=== PATIENT | female | born 1980 | race Two or more races ===

== ENCOUNTER 2019-10-02 | Outpatient (CLI) | payer OTHER | END 2019-10-02 00:01 | disposition critical access hospital (66) | LOC: EMS | PROVIDERS: ATTEND Surgery | DX: T76.21XA Adult sexual abuse, suspected, initial encounter (principal) | CPT/HCPCS: A0425; A0429 ==

== ENCOUNTER 2019-10-02 00:24 | Emergency (ER) | payer OTHER ==
[2019-10-02 00:46] VITALS: BP 148/104
--- NOTE | 2019-10-02 01:19 | ED Physician Documentation ---
History of Present Illness - Stated complaint Stated Complaint: AMS - Chief complaint Chief Complaint: MHE - History obtained from History obtained from: Patient, EMS (Patient is a very pleasant 39-year-old female. On my evaluation the patient is requesting to go home she can answer questions appropriately she has no obvious signs of trauma she is refusing to allow me to examine her she has medical decision-making capability and capacity she is denying homicidal or suicidal thoughts or auditory or visual hallucinations she is awake alert oriented to time date person and place she has medical decision-making capability and capacity at this time and she would like to go home.) PD PAST MEDICAL HISTORY - Past Medical History Cardiovascular: Hypertension Psych: Depression Musculoskeletal: Osteoarthritis, Fibromyalgia, Chronic back pain - Past Surgical History Past Surgical History: No - Present Medications Home Medications: Ambulatory Orders Medication Instructions Recorded Confirmed Colchicine 1 tab DAILY 10/02/19 10/02/19 Lisinopril [Prinivil] 1 tab DAILY PM 10/02/19 10/02/19 Loratadine [Allergy] 1 tab DAILY 10/02/19 10/02/19 Multivitamin [Multivitamins] 1 tab DAILY 10/02/19 10/02/19 Potassium Chloride [Klor-Con 10] 1 tab BID 10/02/19 10/02/19 Pregabalin 1 cap TID 10/02/19 10/02/19 Tapentadol HCl [Nucynta] 1 tab BID 10/02/19 10/02/19 hydrOXYzine HCL [Hydroxyzine HCl] 1 tab DAILY PM 10/02/19 10/02/19 hydroCHLOROthiazide 1 cap DAILY 10/02/19 10/02/19 [Hydrochlorothiazide] metFORMIN [Glucophage] 1 tab DAILY PM 10/02/19 10/02/19 oxyCODONE/ACET 5/325 [Percocet 5 1 tab RTQ6H PRN 10/02/19 10/02/19 mg/325 mg] rOPINIRole [Requip] 1 mg TID 10/02/19 10/02/19 tiZANidine [Zanaflex] 1 tab QID 10/02/19 10/02/19 - Allergies Allergies/Adverse Reactions: Allergies Allergy/AdvReac Type Severity Reaction Status Date / Time latex Allergy Rash Verified 12/22/15 21:32 - Social History Does the pt smoke?: No Smoking Status: Former smoker Does the pt drink ETOH?: No Does the pt have substance abuse?: No - Immunizations Immunizations: TDAP >10years/unknown Results - Vitals Vitals: Vital Signs - 24 hr 10/02/19 00:39 Temperature 37.5 C Heart Rate 116 H Respiratory 20 Rate Blood Pressure 148/104 H O2 Saturation 95 Oxygen O2 Source Room air - Labs Labs: Laboratory Tests 10/02/19 10/02/19 10/02/19 01:59 01:59 01:59 WBC 12.2 H RBC 4.69 Hgb 14.5 Hct 42.6 MCV 90.8 MCH 30.9 MCHC 34.0 RDW 12.9 Plt Count 371 MPV 8.9 Neut # (Auto) 8.0 H Lymph # (Auto) 3.3 [place] # (Auto) 0.8 Eos # (Auto) 0.0 Baso # (Auto) 0.1 Absolute Nucleated RBC 0.00 Nucleated RBC % 0.0 Sodium 138 Potassium 3.4 L Chloride 98 L Carbon Dioxide 26 Anion Gap 14.0 H BUN 11 Creatinine 0.7 Estimated GFR (MDRD) 92 Glucose 133 H Calcium 10.5 H TSH 2.89 Salicylates < 6.0 Acetaminophen < 10 L Ethyl Alcohol < 5.0 PD MEDICAL DECISION MAKING - ED course Complexity details: other (The patient's is now here the patient is awake, alert, oriented she denies any homicidal or suicidal thoughts she denies any auditory or visual hallucinations the patient has been reported would like to be discharged home with close follow-up with her primary care provider. They should return emergency department any concerns.) Departure - Departure Disposition: 01 Home, Self Care Clinical Impression: Well adult health check Condition: Fair Instructions: ED Stress React Follow-Up: YOUR,DOCTOR [Other]
[2019-10-02 02:05] LABS: BASOPHILS # (AUTO) 0.1 10^3/uL (0.0-0.1); BASOPHILS % (AUTO) 0.5 %; EOSINOPHILS % (AUTO) 0.2 %; HGB - HEMOGLOBIN 14.5 g/dL (12.0-16.0); LYMPHOCYTES # (AUTO) 3.3 10^3/uL (1.5-3.5); LYMPHOCYTES % (AUTO) 27.3 %; MEAN CORPUSCULAR HEMOGLOBIN 30.9 pg (27.0-31.0); MEAN CORPUSCULAR VOLUME 90.8 fL (81.0-99.0); MEAN PLATELET VOLUME 8.9 fL (7.9-10.8); MONOCYTES # (AUTO) 0.8 10^3/uL (0.0-1.0); MONOCYTES % (AUTO) 6.5 %; NEUTROPHILS % (AUTO) 65.1 %; PLT - PLATELET COUNT 371 10^3/uL (130-450); RED BLOOD COUNT 4.69 10^6/uL (4.20-5.40); RED CELL DISTRIBUTION WIDTH 12.9 % (12.0-15.0); WHITE BLOOD COUNT 12.2 x10^3/uL (4.8-10.8)
[2019-10-02 02:20] LABS: ACETAMINOPHEN < 10 ug/mL (10-30); BUN - BLOOD UREA NITROGEN 11 mg/dL (6-20); CALCIUM 10.5 mg/dL (8.5-10.3); CARBON DIOXIDE - CO2 26 mmol/L (21-32); CHLORIDE 98 mmol/L (101-111); CREATININE 0.7 mg/dL (0.4-1.0); GFR - MDRD 92 (>89); GLUCOSE 133 mg/dL (70-100); SALICYLATE < 6.0 mg/dL; SODIUM 138 mmol/L (135-145)
== END 2019-10-02 04:22 | disposition home or self-care (01) ==
LOC: EDUNIT# → ED 00:24
DX: Z03.89 Encounter for observation for other suspected diseases and conditions ruled out (principal); I10 Essential (primary) hypertension; Z87.891 Personal history of nicotine dependence
CPT/HCPCS: 36415; 80048; 80307; 80320; 80329; 84443; 85025; 99281; 99283

== ENCOUNTER 2019-10-09 09:37 | Emergency (ER) | payer OTHER ==
[2019-10-09] MEDS ORDERED: HALOPERIDOL 5 MG/ML VIAL IM STA ×2 (09:43→20:07)
[2019-10-09] MEDS ORDERED: MIDAZOLAM 2 MG/2 ML VIAL IM STA ×2 (09:43→20:07)
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
[2019-10-09 10:10] LABS: BASOPHILS # (AUTO) 0.1 10^3/uL (0.0-0.1); BASOPHILS % (AUTO) 0.6 %; EOSINOPHILS % (AUTO) 0.2 %; HGB - HEMOGLOBIN 14.1 g/dL (12.0-16.0); LYMPHOCYTES # (AUTO) 1.7 10^3/uL (1.5-3.5); LYMPHOCYTES % (AUTO) 17.3 %; MEAN CORPUSCULAR HEMOGLOBIN 31.1 pg (27.0-31.0); MEAN CORPUSCULAR VOLUME 91.6 fL (81.0-99.0); MEAN PLATELET VOLUME 9.2 fL (7.9-10.8); MONOCYTES # (AUTO) 0.7 10^3/uL (0.0-1.0); MONOCYTES % (AUTO) 7.1 %; NEUTROPHILS # (AUTO) 7.3 10^3/uL (1.5-6.6); NEUTROPHILS % (AUTO) 74.6 %; PLT - PLATELET COUNT 338 10^3/uL (130-450); RED BLOOD COUNT 4.53 10^6/uL (4.20-5.40); WHITE BLOOD COUNT 9.8 x10^3/uL (4.8-10.8)
[2019-10-09 10:28] LABS: ACETAMINOPHEN < 10 ug/mL (10-30); ALBUMIN 4.6 g/dL (3.2-5.5); ALBUMIN/GLOBULIN RATIO 1.1 (1.0-2.2); ALKALINE PHOSPHATASE 42 IU/L (42-121); ALT ALANINE AMINOTRANSFERASE 33 IU/L (10-60); AST ASPARTATE AMINOTRANSFERASE 31 IU/L (10-42); BILIRUBIN,TOTAL 0.8 mg/dL (0.2-1.0); BUN - BLOOD UREA NITROGEN 13 mg/dL (6-20); CALCIUM 9.4 mg/dL (8.5-10.3); CARBON DIOXIDE - CO2 24 mmol/L (21-32); CHLORIDE 100 mmol/L (101-111); CREATININE 0.7 mg/dL (0.4-1.0); GFR - MDRD 92 (>89); GLUCOSE 151 mg/dL (70-100); LIPASE 31 U/L (22-51); SALICYLATE < 6.0 mg/dL; SODIUM 138 mmol/L (135-145); TOTAL PROTEIN 8.7 g/dL (6.7-8.2)
[2019-10-09 10:56] LABS: MUDS CUTOFF CONCENTRATIONS CUTOFF CONC BELOW:
[2019-10-09 10:58] LABS: BILIRUBIN,URINE NEGATIVE (NEGATIVE); GLUCOSE, URINE (UA) NEGATIVE (NEGATIVE); KETONES,URINE (UA) TRACE mg/dL (NEGATIVE); LEUKOCYTE ESTERASE, URINE NEGATIVE (NEGATIVE); NITRITE,URINE NEGATIVE (NEGATIVE); OCCULT BLOOD,URINE NEGATIVE (NEGATIVE); PROTEIN,URINE 30 mg/dL (NEGATIVE); UROBILINOGEN,URINE 0.2 (NORMAL) E.U./dL (NORMAL)
[2019-10-09 11:01] LABS: CLARITY,URINE CLEAR (CLEAR)
[2019-10-09 11:08] LABS: AMPHETAMINE SCREEN,URINE NEGATIVE (NEGATIVE); BENZODIAZEPINES SCREEN, URINE POSITIVE (NEGATIVE); COCAINE SCREEN URINE NEGATIVE (NEGATIVE); METHAMPHETAMINES SCREEN, URINE NEGATIVE (NEGATIVE); OPIATE SCREEN, URINE NEGATIVE (NEGATIVE); OXYCODONE SCREEN, URINE POSITIVE (NEGATIVE)
[2019-10-09 11:09] LABS: METHADONE SCREEN, URINE NEGATIVE (NEGATIVE); PROPOXYPHENE SCREEN, URINE NEGATIVE (NEGATIVE); TRICYCLIC ANTIDEPRESSANT,URINE NEGATIVE (NEGATIVE)
[2019-10-09 11:14] LABS: BACTERIA,URINE Few /HPF (None Seen); RBC,URINE 0-5 /HPF (0-5); SQUAMOUS EPITHELIAL CELL,UR FEW Squamous (<= Few)
[2019-10-09] MEDS ORDERED: HALOPERIDOL 5 MG/ML VIAL IM ONE (13:53)
[2019-10-09] MEDS ORDERED: LORazepam 1 MG TABLET PO STA (15:21)
[2019-10-09] MEDS ORDERED: OLANZapine ODT 5 MG TABLET TL ONE (15:41)
[2019-10-09] MEDS ORDERED: oxyCODONE 5 MG TABLET PO STA (18:52)
[2019-10-09] MEDS ORDERED: ACETAMINOPHEN 325 MG TABLET PO STA (18:52)
[2019-10-09] MEDS ORDERED: KETAMINE 500 MG/10 ML VIAL IM STA (20:14)
--- NOTE | 2019-10-09 20:15 | ED Physician Documentation ---
ED Addendum - Addendum Addendum: 10/09/19 20:[address] Patient [address] out by Dr[address] Alicia. This is a 39-year-old woman who reportedly has a history of bipolar disorder and has recently decompensated. She is being evaluated by the DCR for involuntary placement. She became very agitated. Very belligerent. Throwing things at staff. Flipping over furniture in her room etc. She was administered 10 mg of Haldol IM, 2 mg of Versed IM. Really not much in the way of response to this and this was followed by 200 mg of ketamine IM. 10/09/19 21:29 DCR arranged for placement at [facility] under the care of Dr. Kay. After the above medications she was calm and stable for transport. [place] were completed.
[2019-10-09] MEDS ORDERED: KETAMINE 500 MG/10 ML VIAL ONE (20:18)
[2019-10-10 03:49] VITALS: BP 158/98
== END 2019-10-10 04:19 ==
LOC: EDUNIT# → ED 09:37
DX: F30.2 Manic episode, severe with psychotic symptoms (principal); I10 Essential (primary) hypertension; Z78.1 Physical restraint status
CPT/HCPCS: 36415; 80320; 80329; 81001; 83690; 93005; 96372; 99285; A9270; J8499; 80053; 80306; 80307; 81003; 84443; 85025; 87086

== ENCOUNTER 2019-10-24 09:53 | Emergency (ER) | payer OTHER ==
[2019-10-24 10:41] LABS: BASOPHILS % (AUTO) 0.6 %; EOSINOPHILS % (AUTO) 0.4 %; HGB - HEMOGLOBIN 13.2 g/dL (12.0-16.0); LYMPHOCYTES # (AUTO) 1.1 10^3/uL (1.5-3.5); LYMPHOCYTES % (AUTO) 15.3 %; MEAN CORPUSCULAR HEMOGLOBIN 31.6 pg (27.0-31.0); MEAN CORPUSCULAR HGB CONC 33.7 g/dL (32.0-36.0); MEAN CORPUSCULAR VOLUME 93.8 fL (81.0-99.0); MEAN PLATELET VOLUME 8.7 fL (7.9-10.8); MONOCYTES # (AUTO) 0.4 10^3/uL (0.0-1.0); MONOCYTES % (AUTO) 5.9 %; NEUTROPHILS # (AUTO) 5.4 10^3/uL (1.5-6.6); NEUTROPHILS % (AUTO) 77.4 %; PLT - PLATELET COUNT 318 10^3/uL (130-450); RED BLOOD COUNT 4.18 10^6/uL (4.20-5.40); RED CELL DISTRIBUTION WIDTH 13.2 % (12.0-15.0)
[2019-10-24 10:54] LABS: ALBUMIN 4.4 g/dL (3.2-5.5); ALBUMIN/GLOBULIN RATIO 1.3 (1.0-2.2); ALKALINE PHOSPHATASE 43 IU/L (42-121); ALT ALANINE AMINOTRANSFERASE 38 IU/L (10-60); AST ASPARTATE AMINOTRANSFERASE 33 IU/L (10-42); BILIRUBIN,TOTAL 0.4 mg/dL (0.2-1.0); BUN - BLOOD UREA NITROGEN 10 mg/dL (6-20); CALCIUM 9.4 mg/dL (8.5-10.3); CARBON DIOXIDE - CO2 27 mmol/L (21-32); CHLORIDE 99 mmol/L (101-111); CREATININE 0.7 mg/dL (0.4-1.0); GFR - MDRD 92 (>89); GLUCOSE 131 mg/dL (70-100); LIPASE 28 U/L (22-51); SODIUM 139 mmol/L (135-145); TOTAL PROTEIN 7.8 g/dL (6.7-8.2)
--- NOTE | 2019-10-24 12:30 | ED Physician Documentation ---
PD HPI MHE - Stated complaint Stated Complaint: MHE - Chief complaint Chief Complaint: MHE - History obtained from History obtained from: Patient, EMS - History of Present Illness Primary symptom: Manic, Aggressive behavior, Off meds Timing - onset: How many days ago (5) Contributing factors: Sig other, Off meds Similar symptoms before: Diagnosis (acute luna) Recently seen: Emergency Dept, Transferred - Additional information Additional information: 39 y/o female with a history of luna has recently been detained and she left the hospital AMA. She is not taking medications, she is not sleeping and she has pressured speech with perseveration about the demands of her . She has been detained by the [facility] as gravely disabled. Review of Systems Unable to obtain: Uncooperative Constitutional: denies: Fever Eyes: denies: Decreased vision Ears: denies: Ear pain Nose: denies: Rhinorrhea / runny nose, Congestion Throat: denies: Sore throat Cardiac: denies: Chest pain / pressure, Palpitations Respiratory: denies: Dyspnea, Cough GI: reports: Abdominal Pain : reports: Dysuria, Frequency Skin: denies: Rash Musculoskeletal: reports: Back pain. denies: Neck pain Neurologic: denies: Generalized weakness, Focal weakness, Numbness PD PAST MEDICAL HISTORY - Past Medical History Past Medical History: Yes Cardiovascular: Hypertension Psych: Depression Musculoskeletal: Osteoarthritis, Fibromyalgia, Chronic back pain - Past Surgical History Past Surgical History: No - Present Medications Home Medications: Ambulatory Orders Medication Instructions Recorded Confirmed Lisinopril [Prinivil] 1 tab PO DAILY 10/02/19 10/25/19 Pregabalin 1 cap PO TID 10/02/19 10/25/19 hydroCHLOROthiazide 1 cap PO DAILY 10/02/19 10/25/19 [Hydrochlorothiazide] metFORMIN [Glucophage] 500 mg PO DAILY PM 10/02/19 10/25/19 oxyCODONE/ACET 5/325 [Percocet 5 1 tab PO QID PRN 10/02/19 10/25/19 mg/325 mg] rOPINIRole [Requip] 1 mg PO TID 10/02/19 10/25/19 tiZANidine [Zanaflex] 4 mg PO QID PRN 10/02/19 10/25/19 DULoxetine [Cymbalta] 90 mg PO DAILY PM 10/09/19 10/25/19 Alprazolam [Xanax] 0.5 mg PO BID 10/25/19 10/25/19 Colchicine [Colcrys] 0.6 mg PO DAILY 10/25/19 10/25/19 Lamotrigine [Lamotrigine ER] 25 mg PO DAILY 10/25/19 10/25/19 Tapentadol HCl [Nucynta] 50 mg PO BID 10/25/19 10/25/19 hydrOXYzine HCL [Hydroxyzine HCl] 25 mg PO DAILY PM 10/25/19 10/25/19 traZODone [Desyrel] 100 mg PO HS 10/25/19 10/25/19 - Allergies Allergies/Adverse Reactions: Allergies Allergy/AdvReac Type Severity Reaction Status Date / Time latex Allergy Rash Verified 10/25/19 05:54 - Social History Does the pt smoke?: No Smoking Status: Never smoker Does the pt drink ETOH?: No Does the pt have substance abuse?: No - Immunizations Immunizations: TDAP >10years/unknown PD ED PE NORMAL - Vitals Vital signs reviewed: Yes (hyppertensive mild ) - General General: Alert and oriented X 3, No acute distress, Well developed/nourished - HEENT HEENT: Atraumatic, PERRL, EOMI - Neck Neck: Supple, no meningeal sign, No bony TTP - Cardiac Cardiac: RRR, No murmur - Respiratory Respiratory: No respiratory distress, Clear bilaterally - Abdomen Abdomen: Soft, Other (morbid obesity mild tenderness without garding ) - Back Back: No CVA TTP, No spinal TTP - Derm Derm: Normal color, Warm and dry, No rash - Extremities Extremities: No deformity, No edema, No calf tenderness / cord - Neuro Neuro: retail product advisor 2-12 intact, No motor deficit, No sensory deficit, Other (pressured speech) Eye Opening: Spontaneous Motor: Obeys Commands Verbal: Oriented GCS Score: 15 - Psych Psych: Other (mood is mad the affect is blunted) Results - Vitals Vitals: Vital Signs - 24 hr 10/24/19 10/25/19 10/25/19 22:44 03:38 08:06 Temperature 37.1 C 36.7 C Heart Rate 90 102 H 98 Respiratory 16 16 20 Rate Blood Pressure 144/84 H 166/99 H 144/86 H O2 Saturation 100 100 100 Oxygen O2 Source Room air - Labs Labs: Laboratory Tests 10/24/19 10/24/19 10/24/19 10:33 10:33 10:33 WBC 7.0 RBC 4.18 L Hgb 13.2 Hct 39.2 MCV 93.8 MCH 31.6 H MCHC 33.7 RDW 13.2 Plt Count 318 MPV 8.7 Neut # (Auto) 5.4 Lymph # (Auto) 1.1 L [place] # (Auto) 0.4 Eos # (Auto) 0.0 Baso # (Auto) 0.0 Absolute Nucleated RBC 0.00 Nucleated RBC % 0.0 Sodium 139 Potassium 3.7 Chloride 99 L Carbon Dioxide 27 Anion Gap 13.0 BUN 10 Creatinine 0.7 Estimated GFR (MDRD) 92 Glucose 131 H Calcium 9.4 Total Bilirubin 0.4 AST 33 ALT 38 Alkaline Phosphatase 43 Total Protein 7.8 Albumin 4.4 Globulin 3.4 Albumin/Globulin Ratio 1.3 Lipase 28 TSH 0.84 Urine Color Urine Clarity Urine pH Ur Specific [place] Urine Protein Urine Glucose (UA) Urine Ketones Urine Occult Blood Urine Nitrite Urine Bilirubin Urine Urobilinogen Ur Leukocyte Esterase Ur Microscopic Review Urine Culture Comments Urine HCG, Qual Urine Opiates Screen Ur Oxycodone Screen Urine Methadone Screen Ur Propoxyphene Screen Ur Barbiturates Screen Ur Tricyclics Screen Ur Phencyclidine Scrn Ur Amphetamine Screen U Methamphetamines Scrn U Benzodiazepines Scrn Urine Cocaine Screen U Cannabinoids Screen Ethyl Alcohol < 5.0 10/24/19 10/24/19 15:25 15:25 WBC RBC Hgb Hct MCV MCH MCHC RDW Plt Count MPV Neut # (Auto) Lymph # (Auto) [place] # (Auto) Eos # (Auto) Baso # (Auto) Absolute Nucleated RBC Nucleated RBC % Sodium Potassium Chloride Carbon Dioxide Anion Gap BUN Creatinine Estimated GFR (MDRD) Glucose Calcium Total Bilirubin AST ALT Alkaline Phosphatase Total Protein Albumin Globulin Albumin/Globulin Ratio Lipase TSH Urine Color YELLOW Urine Clarity CLEAR Urine pH 7.5 Ur Specific [place] 1.010 Urine Protein NEGATIVE Urine Glucose (UA) NEGATIVE Urine Ketones NEGATIVE Urine Occult Blood NEGATIVE Urine Nitrite NEGATIVE Urine Bilirubin NEGATIVE Urine Urobilinogen 0.2 (NORMAL) Ur Leukocyte Esterase NEGATIVE Ur Microscopic Review NOT INDICATED Urine Culture Comments NOT INDICATED Urine HCG, Qual NEGATIVE Urine Opiates Screen NEGATIVE Ur Oxycodone Screen POSITIVE H Urine Methadone Screen NEGATIVE Ur Propoxyphene Screen NEGATIVE Ur Barbiturates Screen NEGATIVE Ur Tricyclics Screen NEGATIVE Ur Phencyclidine Scrn NEGATIVE Ur Amphetamine Screen NEGATIVE U Methamphetamines Scrn NEGATIVE U Benzodiazepines Scrn POSITIVE H Urine Cocaine Screen NEGATIVE U Cannabinoids Screen POSITIVE H Ethyl Alcohol PD MEDICAL DECISION MAKING - ED course Complexity details: reviewed old records, reviewed results, re-evaluated patient, considered differential, d/w patient ED course: 39-year-old female with history of luna and noncompliance is been noncompliant and she is manic. She is brought to the hospital by ambulance detained as gravely disabled by [facility]. She exhibits pressured speech, aggressive behavior and perseveration about her husbands sexual demands. The hospice social worker is consulted and the DCR is dispatched. She is administered PO ativan and PO hydroxizine and refuses PO zyprexa. At shift change care is turned over to Dr. Medina awaiting placement. Patient is able to sleep overnight in the emergency department and following day today the patient is excepted for admission to [facility]. Departure - Departure Disposition: 65 Psych Hosp/Unit DC/Xfer Clinical Impression: Luna
[2019-10-24] MEDS ORDERED: LORazepam 1 MG TABLET PO STA (13:02)
[2019-10-24] MEDS ORDERED: OLANZapine ODT 5 MG TABLET TL ONE (13:49)
[2019-10-24] MEDS ORDERED: hydrOXYzine PAMOATE 25 MG CAPSULE PO STA (14:09)
[2019-10-24 15:33] LABS: MUDS CUTOFF CONCENTRATIONS CUTOFF CONC BELOW:
[2019-10-24 15:40] LABS: BILIRUBIN,URINE NEGATIVE (NEGATIVE); CLARITY,URINE CLEAR (CLEAR); GLUCOSE, URINE (UA) NEGATIVE (NEGATIVE); HCG UR QUAL NEGATIVE; KETONES,URINE (UA) NEGATIVE (NEGATIVE); LEUKOCYTE ESTERASE, URINE NEGATIVE (NEGATIVE); NITRITE,URINE NEGATIVE (NEGATIVE); OCCULT BLOOD,URINE NEGATIVE (NEGATIVE); PH,URINE 7.5 PH (5.0-7.5); PROTEIN,URINE NEGATIVE (NEGATIVE); UROBILINOGEN,URINE 0.2 (NORMAL) E.U./dL (NORMAL)
[2019-10-24 15:48] LABS: AMPHETAMINE SCREEN,URINE NEGATIVE (NEGATIVE); BENZODIAZEPINES SCREEN, URINE POSITIVE (NEGATIVE); COCAINE SCREEN URINE NEGATIVE (NEGATIVE); METHADONE SCREEN, URINE NEGATIVE (NEGATIVE); METHAMPHETAMINES SCREEN, URINE NEGATIVE (NEGATIVE); OPIATE SCREEN, URINE NEGATIVE (NEGATIVE); OXYCODONE SCREEN, URINE POSITIVE (NEGATIVE); PROPOXYPHENE SCREEN, URINE NEGATIVE (NEGATIVE); TRICYCLIC ANTIDEPRESSANT,URINE NEGATIVE (NEGATIVE)
[2019-10-24] MEDS ORDERED: oxyCODONE 5 MG TABLET PO STA (20:55)
[2019-10-25] MEDS ORDERED: IBUPROFEN 400 MG TABLET PO STA (03:42)
[2019-10-25] MEDS ORDERED: ACETAMINOPHEN 325 MG TABLET PO STA ×2 (03:43→14:40)
[2019-10-25] MEDS: tiZANidine 4 MG TABLET PO PRN ×2 (05:30→12:50)
[2019-10-25] MEDS ORDERED: PREGABALIN 25 MG CAPSULE PO STA (05:56)
[2019-10-25] MEDS ORDERED: LORazepam 2 MG/ML VIAL IM STA (06:16)
[2019-10-25] MEDS ORDERED: LORazepam 2 MG/ML VIAL ONE (06:20)
[2019-10-25] MEDS ORDERED: rOPINIRole 1 MG TABLET PO STA (14:39)
[2019-10-25 19:01] VITALS: BP 126/80
[2019-10-25] MEDS ORDERED: tiZANidine 4 MG TABLET PO STA (19:58)
[2019-10-25] MEDS ORDERED: LORazepam 1 MG TABLET PO STA (19:58)
== END 2019-10-25 21:15 ==
LOC: EDUNIT# → ED 09:53
DX: F30.9 Manic episode, unspecified (principal); R30.0 Dysuria; R35.0 Frequency of micturition; Z91.14 Patient's other noncompliance with medication regimen; I10 Essential (primary) hypertension; M79.7 Fibromyalgia; G89.29 Other chronic pain; M54.9 Dorsalgia, unspecified; M19.90 Unspecified osteoarthritis, unspecified site
CPT/HCPCS: 36415; 80320; 81003; 81025; 83690; 93005; 96372; 99283; 99285; A9270; J2060; J8499; 80053; 80306; 81001; 84443; 85025; 87086

== ENCOUNTER 2019-11-01 13:16 | Emergency (ER) | payer OTHER ==
[2019-11-01 14:14] LABS: BASOPHILS % (AUTO) 0.5 %; EOSINOPHILS # (AUTO) 0.1 10^3/uL (0.0-0.7); EOSINOPHILS % (AUTO) 0.6 %; HGB - HEMOGLOBIN 14.3 g/dL (12.0-16.0); LYMPHOCYTES # (AUTO) 1.7 10^3/uL (1.5-3.5); LYMPHOCYTES % (AUTO) 21.4 %; MEAN CORPUSCULAR HEMOGLOBIN 31.8 pg (27.0-31.0); MEAN CORPUSCULAR HGB CONC 34.5 g/dL (32.0-36.0); MEAN PLATELET VOLUME 9.1 fL (7.9-10.8); MONOCYTES # (AUTO) 0.6 10^3/uL (0.0-1.0); MONOCYTES % (AUTO) 7.1 %; NEUTROPHILS # (AUTO) 5.6 10^3/uL (1.5-6.6); NEUTROPHILS % (AUTO) 69.9 %; PLT - PLATELET COUNT 377 10^3/uL (130-450); RED CELL DISTRIBUTION WIDTH 12.9 % (12.0-15.0)
[2019-11-01 14:31] LABS: ACETAMINOPHEN < 10 ug/mL (10-30); ALBUMIN 4.5 g/dL (3.2-5.5); ALBUMIN/GLOBULIN RATIO 1.1 (1.0-2.2); ALKALINE PHOSPHATASE 50 IU/L (42-121); ALT ALANINE AMINOTRANSFERASE 40 IU/L (10-60); AST ASPARTATE AMINOTRANSFERASE 36 IU/L (10-42); BILIRUBIN,TOTAL 0.7 mg/dL (0.2-1.0); BUN - BLOOD UREA NITROGEN 9 mg/dL (6-20); CALCIUM 10.1 mg/dL (8.5-10.3); CARBON DIOXIDE - CO2 28 mmol/L (21-32); CHLORIDE 99 mmol/L (101-111); CREATININE 0.7 mg/dL (0.4-1.0); GFR - MDRD 92 (>89); GLUCOSE 120 mg/dL (70-100); LIPASE 29 U/L (22-51); SALICYLATE < 6.0 mg/dL; SODIUM 138 mmol/L (135-145); TOTAL PROTEIN 8.6 g/dL (6.7-8.2)
--- NOTE | 2019-11-01 14:34 | ED Physician Documentation ---
<Stefan Trinidad - Last Filed: 11/01/19 19:23> PD HPI MHE - Stated complaint Stated Complaint: MHE - Chief complaint Chief Complaint: MHE - History obtained from History obtained from: Patient - History of Present Illness Primary symptom: Manic (Random thought process and not demonstrating good self- care of eating. She is lost significant weight in the last month according to her . She has not had much sleep consistently. She had been hospitalized recently twice for manic/psychotic behavior with prescriptions in the patient does discontinued use of them upon discharge.), Anxiety, Other (marked insomnia for several weeks). No: Suicidal ideation, Aggressive behavior Timing - onset: How many months ago (Apparently symptoms just in the last month or 2) Contributing factors: No: Substance abuse - ETOH, Substance abuse - drugs Similar symptoms before: Has not had sx before (Apparently some history of depression perhaps when she was younger but no psychotic features. This is all relatively new behavior) Recently seen: Emergency Dept, Admitted (twice this past few weeks, involuntarily.) Review of Systems Unable to obtain: Other (Review of systems is somewhat slow as she is often off topic and tangential or unrelated thought process. She is able answer some questions directly at times.) Constitutional: denies: Fever, Chills Nose: denies: Rhinorrhea / runny nose, Congestion Throat: denies: Sore throat Cardiac: denies: Chest pain / pressure Respiratory: denies: Cough GI: denies: Abdominal Pain, Nausea, Vomiting, Diarrhea Neurologic: reports: Headache (at times). denies: Altered mental status Psychiatric: reports: Depressed, Anxiety, Insomnia. denies: Suicidal PD PAST MEDICAL HISTORY - Past Medical History Past Medical History: Yes Cardiovascular: Hypertension Respiratory: None Neuro: None Endocrine/Autoimmune: Type 1 diabetes GI: None ANSWERING SERVICE TELEPHONE OPERATOR: None : None HEENT: None Psych: Depression Musculoskeletal: Osteoarthritis, Fibromyalgia, Chronic back pain Derm: None - Past Surgical History Past Surgical History: No - Present Medications Home Medications: Ambulatory Orders Medication Instructions Recorded Confirmed Lisinopril [Prinivil] 1 tab PO DAILY 10/02/19 10/25/19 Pregabalin 1 cap PO TID 10/02/19 10/25/19 hydroCHLOROthiazide 1 cap PO DAILY 10/02/19 10/25/19 [Hydrochlorothiazide] metFORMIN [Glucophage] 500 mg PO DAILY PM 10/02/19 10/25/19 oxyCODONE/ACET 5/325 [Percocet 5 1 tab PO QID PRN 10/02/19 10/25/19 mg/325 mg] rOPINIRole [Requip] 1 mg PO TID 10/02/19 10/25/19 tiZANidine [Zanaflex] 4 mg PO QID PRN 10/02/19 10/25/19 DULoxetine [Cymbalta] 90 mg PO DAILY PM 10/09/19 10/25/19 Alprazolam [Xanax] 0.5 mg PO BID 10/25/19 10/25/19 Colchicine [Colcrys] 0.6 mg PO DAILY 10/25/19 10/25/19 Lamotrigine [Lamotrigine ER] 25 mg PO DAILY 10/25/19 10/25/19 Tapentadol HCl [Nucynta] 50 mg PO BID 10/25/19 10/25/19 hydrOXYzine HCL [Hydroxyzine HCl] 25 mg PO DAILY PM 10/25/19 10/25/19 traZODone [Desyrel] 100 mg PO HS 10/25/19 10/25/19 - Allergies Allergies/Adverse Reactions: Allergies Allergy/AdvReac Type Severity Reaction Status Date / Time latex Allergy Rash Verified 11/01/19 13:27 - Living Situation Living Situation: reports: With spouse/s.o. (She states she has been about 20 years) Living Arrangement: reports: At home - Social History Does the pt smoke?: No Smoking Status: Never smoker Does the pt drink ETOH?: No Does the pt have substance abuse?: No - Family History Family history: reports: DM - Immunizations Immunizations are current?: No Immunizations: TDAP >10years/unknown - POLST Patient has POLST: No PD ED PE NORMAL - Vitals Vital signs reviewed: Yes - General General: Alert and oriented X 3, Well developed/nourished, Other (She is not seeming to be able to answer questions directly but is caught in her own thought process. She is awake and alert and will start to answer questions at times but then is talking more about a historical aspects of time she had been injured or interacting with other people. Her thought processes seeming unconnected and none not even tangential. She is speaking in complete sentences. There is no delirium.) - HEENT HEENT: Moist mucous membranes, Pharynx benign - Neck Neck: Supple, no meningeal sign, No adenopathy - Cardiac Cardiac: RRR, No murmur - Respiratory Respiratory: Clear bilaterally - Abdomen Abdomen: Soft, Non tender - Derm Derm: Normal color, Warm and dry - Extremities Extremities: No deformity - Neuro Neuro: Alert and oriented X 3, No motor deficit, Normal speech - Psych Psych: No: Normal affect (Tangential thought and unconnected thought process. She is unable to really explain a method of self care or demonstrate self-care. She did not really want anything to eat or drink.) PD MEDICAL DECISION MAKING - ED course Complexity details: reviewed old records, considered differential (She is demonstrating manic/psychotic type behaviors and thought process. She does not have any delirium but is awake and alert and conversant. This does seem likely more psychiatric than medical. She had had normal labs on previous visits. Will check the usual labs today and extend out the lab testing a little bit. We will also obtain a head CT for completeness. At this point were given her some Zyprexa to help with calming in some sedation and then will still get the CT when she is more cooperative that way. [facility] is here evaluating the patient with presumed involuntary chcf again.), d/w patient Departure - Departure Disposition: 65 Psych Hosp/Unit DC/Xfer Clinical Impression: Psychotic disorder Qualifiers: Psychosis type: schizoaffective disorder Schizoaffective disorder type: unspecified Qualified Code(s): F25.9 - Schizoaffective disorder, unspecified Clinical Impression: (Ruled Out): Suicidal ideation Condition: Stable Record reviewed to determine appropriate education?: Yes <Josiah Vidal - Last Filed: 11/02/19 00:44> Results - Vitals Vitals: Vital Signs - 24 hr 11/01/19 11/01/19 13:27 23:23 Temperature 36.5 C Heart Rate 96 75 Respiratory 16 20 Rate Blood Pressure 128/95 H 130/71 O2 Saturation 99 98 Oxygen O2 Source Room air - Labs Labs: Laboratory Tests 11/01/19 11/01/19 11/01/19 14:06 14:06 14:06 WBC 8.0 RBC 4.50 Hgb 14.3 Hct 41.4 MCV 92.0 MCH 31.8 H MCHC 34.5 RDW 12.9 Plt Count 377 MPV 9.1 Neut # (Auto) 5.6 Lymph # (Auto) 1.7 Gaines # (Auto) 0.6 Eos # (Auto) 0.1 Baso # (Auto) 0.0 Absolute Nucleated RBC 0.00 Nucleated RBC % 0.0 ESR Sodium 138 Potassium 3.7 Chloride 99 L Carbon Dioxide 28 Anion Gap 11.0 BUN 9 Creatinine 0.7 Estimated GFR (MDRD) 92 Glucose 120 H Calcium 10.1 Total Bilirubin 0.7 AST 36 ALT 40 Alkaline Phosphatase 50 Total Protein 8.6 H Albumin 4.5 Globulin 4.1 Albumin/Globulin Ratio 1.1 Lipase 29 Vitamin B12 TSH 0.68 Urine Color Urine Clarity Urine pH Ur Specific [place] Urine Protein Urine Glucose (UA) Urine Ketones Urine Occult Blood Urine Nitrite Urine Bilirubin Urine Urobilinogen Ur Leukocyte Esterase Ur Microscopic Review Urine Culture Comments Urine HCG, Qual Salicylates < 6.0 Urine Opiates Screen Ur Oxycodone Screen Urine Methadone Screen Ur Propoxyphene Screen Acetaminophen < 10 L Ur Barbiturates Screen Ur Tricyclics Screen Ur Phencyclidine Scrn Ur Amphetamine Screen U Methamphetamines Scrn U Benzodiazepines Scrn Urine Cocaine Screen U Cannabinoids Screen Ethyl Alcohol < 5.0 11/01/19 11/01/19 11/01/19 15:28 15:28 15:43 WBC RBC Hgb Hct MCV MCH MCHC RDW Plt Count MPV Neut # (Auto) Lymph # (Auto) Gaines # (Auto) Eos # (Auto) Baso # (Auto) Absolute Nucleated RBC Nucleated RBC % ESR Sodium Potassium Chloride Carbon Dioxide Anion Gap BUN Creatinine Estimated GFR (MDRD) Glucose Calcium Total Bilirubin AST ALT Alkaline Phosphatase Total Protein Albumin Globulin Albumin/Globulin Ratio Lipase Vitamin B12 1102 H TSH Urine Color YELLOW Urine Clarity CLEAR Urine pH 7.5 Ur Specific [place] 1.010 Urine Protein NEGATIVE Urine Glucose (UA) NEGATIVE Urine Ketones TRACE Urine Occult Blood NEGATIVE Urine Nitrite NEGATIVE Urine Bilirubin NEGATIVE Urine Urobilinogen 0.2 (NORMAL) Ur Leukocyte Esterase NEGATIVE Ur Microscopic Review NOT INDICATED Urine Culture Comments NOT INDICATED Urine HCG, Qual NEGATIVE Salicylates Urine Opiates Screen NEGATIVE Ur Oxycodone Screen POSITIVE H Urine Methadone Screen NEGATIVE Ur Propoxyphene Screen NEGATIVE Acetaminophen Ur Barbiturates Screen NEGATIVE Ur Tricyclics Screen NEGATIVE Ur Phencyclidine Scrn NEGATIVE Ur Amphetamine Screen NEGATIVE U Methamphetamines Scrn NEGATIVE U Benzodiazepines Scrn NEGATIVE Urine Cocaine Screen NEGATIVE U Cannabinoids Screen POSITIVE H Ethyl Alcohol 11/01/19 15:43 WBC RBC Hgb Hct MCV MCH MCHC RDW Plt Count MPV Neut # (Auto) Lymph # (Auto) Gaines # (Auto) Eos # (Auto) Baso # (Auto) Absolute Nucleated RBC Nucleated RBC % ESR 11 Sodium Potassium Chloride Carbon Dioxide Anion Gap BUN Creatinine Estimated GFR (MDRD) Glucose Calcium Total Bilirubin AST ALT Alkaline Phosphatase Total Protein Albumin Globulin Albumin/Globulin Ratio Lipase Vitamin B12 TSH Urine Color Urine Clarity Urine pH Ur Specific [place] Urine Protein Urine Glucose (UA) Urine Ketones Urine Occult Blood Urine Nitrite Urine Bilirubin Urine Urobilinogen Ur Leukocyte Esterase Ur Microscopic Review Urine Culture Comments Urine HCG, Qual Salicylates Urine Opiates Screen Ur Oxycodone Screen Urine Methadone Screen Ur Propoxyphene Screen Acetaminophen Ur Barbiturates Screen Ur Tricyclics Screen Ur Phencyclidine Scrn Ur Amphetamine Screen U Methamphetamines Scrn U Benzodiazepines Scrn Urine Cocaine Screen U Cannabinoids Screen Ethyl Alcohol PD MEDICAL DECISION MAKING - ED course ED course: PATIENT WAS TRANSFERRED TO [facility] FOR INPATIENT PSYCHIATRIC ADMISSION.
[2019-11-01] MEDS ORDERED: IBUPROFEN 600 MG TABLET PO STA (15:17)
[2019-11-01 15:30] LABS: MUDS CUTOFF CONCENTRATIONS CUTOFF CONC BELOW:
[2019-11-01 15:35] LABS: BILIRUBIN,URINE NEGATIVE (NEGATIVE); GLUCOSE, URINE (UA) NEGATIVE (NEGATIVE); KETONES,URINE (UA) TRACE mg/dL (NEGATIVE); LEUKOCYTE ESTERASE, URINE NEGATIVE (NEGATIVE); NITRITE,URINE NEGATIVE (NEGATIVE); OCCULT BLOOD,URINE NEGATIVE (NEGATIVE); PH,URINE 7.5 PH (5.0-7.5); PROTEIN,URINE NEGATIVE (NEGATIVE); UROBILINOGEN,URINE 0.2 (NORMAL) E.U./dL (NORMAL)
[2019-11-01 15:37] LABS: CLARITY,URINE CLEAR (CLEAR); HCG UR QUAL NEGATIVE
[2019-11-01 15:47] LABS: AMPHETAMINE SCREEN,URINE NEGATIVE (NEGATIVE); BENZODIAZEPINES SCREEN, URINE NEGATIVE (NEGATIVE); COCAINE SCREEN URINE NEGATIVE (NEGATIVE); METHADONE SCREEN, URINE NEGATIVE (NEGATIVE); METHAMPHETAMINES SCREEN, URINE NEGATIVE (NEGATIVE); OPIATE SCREEN, URINE NEGATIVE (NEGATIVE); OXYCODONE SCREEN, URINE POSITIVE (NEGATIVE); PROPOXYPHENE SCREEN, URINE NEGATIVE (NEGATIVE); TRICYCLIC ANTIDEPRESSANT,URINE NEGATIVE (NEGATIVE)
[2019-11-01] MEDS ORDERED: OLANZapine ODT 5 MG TABLET TL ONE (18:11)
[2019-11-01] MEDS ORDERED: OLANZapine 10 MG VIAL IM STA ×2 (18:25→19:27)
--- NOTE | 2019-11-01 20:10 | CT Report ---
Reason: altered mental status and headache Procedure Date: 11/01/2019 Accession Number: [id number] / [id number] Procedure: CT - HEAD WO CPT Code: Final Report FULL RESULT: EXAM: CT HEAD EXAM DATE: 11/01/2019 08:02 PM. CLINICAL HISTORY: Altered mental status and headache. COMPARISON: None. TECHNIQUE: Multiaxial CT images were obtained from the foramen magnum to the vertex. Reformats: Sagittal and coronal. IV contrast: None. In accordance with CT protocol optimization, one or more of the following dose reduction techniques were utilized for this exam: automated exposure control, adjustment of mA and/or KV based on patient size, or use of iterative reconstructive technique. FINDINGS: Parenchyma: No intraparenchymal hemorrhage. No evidence of mass, midline shift, or CT findings of infarction. Summers-white differentiation is distinct. Extraaxial Spaces: Normal for age. No subdural or epidural collections identified. Ventricles: Normal in size and position. Sinuses and Orbits: Imaged paranasal sinuses, orbits, and mastoids show no significant abnormality. Bones: No evidence of fracture or calvarial defect. Other: None. IMPRESSION: Normal head CT. [facility]
[2019-11-02 01:44] VITALS: BP 152/105
== END 2019-11-02 01:44 ==
LOC: ED 13:16
DX: F25.9 Schizoaffective disorder, unspecified (principal); R51 Headache; I10 Essential (primary) hypertension; E10.9 Type 1 diabetes mellitus without complications; Z79.84 Long term (current) use of oral hypoglycemic drugs
CPT/HCPCS: 36415; 70450; 80320; 80329; 81003; 81025; 82306; 82607; 83690; 85651; 86780; 93005; 96372; 99284; 99285; A9270; 80053; 80306; 80307; 81001; 84443; 85025; 87086